=== PATIENT | male | born 1990 | race Hispanic/Latino ===

== ENCOUNTER 2017-12-25 20:18 | Emergency (ER) | payer SELFPAY ==
[2017-12-25] MEDS ORDERED: Ondansetron PF 4 MG/2 ML Vial ONE (20:36)
[2017-12-25] MEDS ORDERED: Metoclopramide HCl 10 MG/2 ML VIAL ONE (20:59)
[2017-12-25] MEDS ORDERED: diphenhydrAMINE 25 MG CAP ONE (20:59)
--- NOTE | 2017-12-25 21:59 | CT ---
CT BRAIN 12/25/17 HISTORY: Headache. Noncontrast enhanced CT images of the brain obtained. The brain is unremarkable. No evidence of intracranial masses, hemorrhages or strokes seen. The ventr icles are of normal size. IMPRESSION: Normal CT brain. POS: [facility]
[2017-12-25] MEDS ORDERED: Ketorolac Tromethamine 30 MG/ML VIAL ONE (22:20)
== END 2017-12-25 23:08 | disposition home or self-care (01) ==
LOC: ERS 20:18
DX: S09.90XA Unspecified injury of head, initial encounter (principal); X58.XXXA Exposure to other specified factors, initial encounter
CPT/HCPCS: 70450; 96365; 96375; J1885; J2405; J2765

== ENCOUNTER 2019-08-01 07:57 | Emergency (ER) | payer SELFPAY ==
[2019-08-01] MEDS ORDERED: Ondansetron PF 4 MG/2 ML Vial ONE (08:16)
[2019-08-01] MEDS ORDERED: Morphine 4 MG/ML VIAL ONE ×2 (08:16→09:33)
[2019-08-01 08:53] LABS: #Eosinphils 0.3 thou/uL (0.0-0.7); #Lymphocytes 2.2 thou/uL (1.20-3.40); #Monocytes 0.5 thou/uL (0.11-0.59); #Neutrophils 7.1 thou/uL (1.40-6.50); %Basophils 0.5 % (0.0-1.0); %Eosinophils 2.8 % (0.0-10.0); %Lymphocytes 21.5 % (21.0-51.0); %Monocytes 4.6 % (0.0-10.0); %Neutrophils 70.5 % (42.0-75.0); Hemoglobin 16.2 g/dL (14.0-18.0); Mean Corpuscular HGB CONC 35.1 g/dL (32.0-36.0); Mean Corpuscular Volume 88.2 fL (78.0-98.0); Mean Platelet Volume 8.4 fL (7.4-10.4); Platelet Count 252 thou/uL (130-400); RBC Distribution Width 11.6 % (11.5-14.5); Red Blood Cell (RBC) Count 5.24 mill/uL (4.70-6.10); White Blood Cell (WBC) Count 10.1 thou/uL (4.8-10.8)
[2019-08-01 09:19] LABS: ALT (SGPT) 47 U/L (8-55); AST (SGOT) 34 U/L (5-34); Albumin 5.2 g/dL (3.5-5.0); Alkaline Phosphatase 63 U/L (40-110); Anion Gap 16 mmol/L (10-20); BUN (Urea Nitrogen) 25 mg/dL (8.9-20.6); Bilirubin Negative (Negative); Bilirubin, Total 0.4 mg/dL (0.2-1.2); Blood, Urine 3+ (Negative); Calc. Creatinine Clearance 0 mL/min (70-130); Carbon Dioxide 22 mmol/L (22-29); Chloride 106 mmol/L (98-107); Clarity Extra Turbid (Clear); Estimated GFR-MDRD 61; Globulin 3.3 g/dL (2.4-3.5); Glucose 133 mg/dL (70-105); Glucose, Urine (Dipstick) Normal (Negative); Leukocyte 25 Leu/uL (Negative); Lipase 15 U/L (8-78); Nitrite Negative (Negative); Protein, Total 8.5 g/dL (6.0-8.3); Protein, Urine (Dipstick) 70 mg/dL (Neg-Trace); RBC/HPF Greater than 50 HPF (0-3); Sodium 140 mmol/L (136-145); Squamous Epithelial None Seen HPF (0-3); Urobilinogen Normal mg/dL (Less than 2)
[2019-08-01 09:27] LABS: Bacteria/HPF 2+ HPF (None Seen); Yeast-Budding 1+ HPF (None Seen)
--- NOTE | 2019-08-01 09:33 | CT ---
CT Abdomen Pelvis W Con: 08/01/2019 8:12 AM CLINICAL INFORMATION: Abdominal pain, nausea, and vomiting COMPARISON: None. TECHNIQUE: Multiple contiguous axial images were obtained and a CT of the abdomen and pelvis with IV contrast. C oronal and sagittal reformats were performed. FINDINGS: Lower Chest: within normal limits. Abdomen: Liver: within normal limits. Bile Ducts: Normal caliber. Gallbladder: No calcified gallstones. Normal caliber wall. Pancreas: within normal limits. Spleen: within normal limits. Adrenals: within normal limits. Kidneys: Mild left hydronephrosis with delay of the left nephrogram compared to the right. 1.6 cm rig ht renal cyst. Pelvis: Reproductive Organs: No pelvic masses. Ureters: 1 mm calcification at the left ureterovesical junction with mild left hydroureter Bladder: within normal limits. Peritoneum: No ascites or free air, no fluid collection. Bowel: Normal caliber. Normal appendix. Mesentery and Retroperitoneum: No enlarged mesenteric or retroperitoneal lymph nodes. Vessels: Normal. Abdominal Wall: within normal limits. Bones: Within normal limits IMPRESSION: 1. Left distal ureteral calcification with mild left hydronephrosis 2. Right renal cyst
[2019-08-01] MEDS ORDERED: Iopamidol-370 76% 500 ML 1 ML ONE (09:36)
[2019-08-01] MEDS ORDERED: Ketorolac Tromethamine 30 MG/ML VIAL ONE (10:28)
[2019-08-01] MEDS ORDERED: cefTRIAXone\\ROCEPHIN 2 GM VIAL ONE (10:28)
== END 2019-08-01 11:15 | disposition home or self-care (01) ==
LOC: ERS 07:57
DX: N13.2 Hydronephrosis with renal and ureteral calculous obstruction (principal); F17.210 Nicotine dependence, cigarettes, uncomplicated
CPT/HCPCS: 74177; 80053; 81003; 81015; 83690; 85025; 87086; 96374; 96375; 96376; J0696; J1885; J2270; J2405; Q9967

== ENCOUNTER 2025-01-30 09:15 | Emergency (ER) | payer SELFPAY ==
[2025-01-30] MEDS ORDERED: Ketorolac Tromethamine 30 MG (1 mL) VIAL ONE (10:40)
[2025-01-30] MEDS ORDERED: Acetaminophen 500 MG TAB ONE (10:40)
== END 2025-01-30 11:43 | disposition home or self-care (01) ==
LOC: ERS 09:15
DX: J10.1 Influenza due to other identified influenza virus with other respiratory manifestations (principal); F17.210 Nicotine dependence, cigarettes, uncomplicated
CPT/HCPCS: 87081; 87428; 87430; 96372; 99283; J1885